=== PATIENT | female | born 1960 | race Caucasian/White ===

== ENCOUNTER 2018-06-17 17:12 | Emergency (ER) | payer MEDICAID, OTHER ==
[~2018-06-17] VITALS: Ht 165.1 cm; Wt 132.9 kg
[~2018-06-17 17:12] MED LIST: ALBU0.633 IH; AMLO5TAB4 PO; BECL8.7A5 IN; CALCIUM PO; CARB200T PO; CARI350T PO; CLON1TAB PO; CLOT15CR4; COMBIVENT RESPIMAT INH; DULO30CA2 PO; FEXO180T94 PO; FLUT1DIS3 IN; FLUT50DI IH; GLYCOPYRROLATE PO; HYDR4TAB4 PO; HYDROCORTIZONE CREAM TOP; IPRA0.2S9 IN; IPRATOPIUM IN; LEVO100T PO; LORA2TAB95 PO; MAGNESIUM PO; METH10TA PO; MIRT15TA PO; MONT10TA22 PO; MULT-1160 PO; OMEP40CA PO; ONDA4TAB5 PO; POLY17PO4; PRAM0.5T3 PO; TIOT18CA3 IH; TOPI50TA PO; ZINC PO; [UNRECOGNIZED DRUG - OTHER] TOP
[2018-06-17] MEDS ORDERED: HYDROMORPHONE INJ 2 MG/ML DISP.SYRIN IV ONE (17:30)
--- NOTE | 2018-06-17 17:34 | NUR ---
BIBRA AXOX4 C/O CP 08/27 NON RADIATING, -HIDALGO, NV, DIZZYNESS, SOB, PT ON O2 TRACH
[2018-06-17 17:48] LABS: BASOPHILS # (AUTO) 0.1 /CMM (0.0-0.2); BASOPHILS % (AUTO) 0.6 % (0.0-2.0); EOSINOPHILS % (AUTO) 2.4 % (0.0-6.0); HEMATOCRIT 32 % (33-45); HEMOGLOBIN 10.4 g/dL (11.5-14.8); LYMPHOCYTES # (AUTO) 1.8 /CMM (0.8-4.8); LYMPHOCYTES % (AUTO) 20.2 % (20.0-44.0); MEAN CORPUSCULAR HGB CONC 33 g/dl (31.0-36.0); MEAN CORPUSCULAR VOLUME 92 fL (82-100); MONOCYTES # (AUTO) 0.6 /CMM (0.1-1.30); MONOCYTES % (AUTO) 6.6 % (2.0-12.0); NEUTROPHILS # (AUTO) 6.2 /CMM (1.8-8.9); NEUTROPHILS % (AUTO) 70.2 % (43.0-81.0); PLATELET COUNT (AUTO) 290 /CMM (150-450); RED BLOOD CELL COUNT(AUTO) 3.45 MIL/uL (4.0-5.2); WHITE BLOOD COUNT (AUTO) 8.9 K/uL (4.3-11.0)
[2018-06-17 18:09] LABS: B-TYPE NATRIURETIC PEPTIDE 32 PG/ML (0-125); CALCIUM, SERUM 8.8 mg/dL (8.5-10.1); CARBON DIOXIDE 39 mmol/L (21-32); CHLORIDE 95 mmol/L (98-107); CREATININE 0.6 mg/dL (0.6-1.3); GLUCOSE 101 mg/dL (74-106); POTASSIUM 4.2 mmol/L (3.5-5.1); SODIUM SERUM 129 mmol/L (136-145); UREA NITROGEN, BLOOD 11 mg/dL (7-18)
[2018-06-17] MEDS ORDERED: HYDROMORPHONE 1 MG/1 ML DISP.SYRIN ONE (18:10)
--- NOTE | 2018-06-17 19:07 | NUR ---
URINE TAKEN VIA I&O CATH, PT DENIES PAIN ATTHIS TIME, STABLE
--- NOTE | 2018-06-17 19:22 | NUR ---
PT STABLE HANDOFF GIVEN TO ONCOMING MAIKEL MACE.
[2018-06-17 19:34] LABS: BILIRUBIN,URINE Negative (NEGATIVE); BLOOD, URINE Negative Ery/uL (NEGATIVE); KETONES,URINE Negative (NEGATIVE); LEUKOCYTE ESTERASE ,URINE Negative (NEGATIVE); NITRITE, URINE Positive (NEGATIVE); PH,URINE 7.5 (5.0-8.0); PROTEIN,URINE Trace mg/dl (NEGATIVE); UGLUCOSE 100 MG/DL mg/dL (NEGATIVE)
[2018-06-17 19:35] LABS: APPEARANCE,URINE SLIGHTLY HAZY (CLEAR); COLOR,URINE DARK YELLOW (YELLOW)
[2018-06-17 19:47] LABS: BACTERIA,URINE Many /HPF (None Seen); RBC,URINE 0-2 /HPF (0-2); SQUAMOUS EPITHELIAL CELL,UR Few /HPF (None Seen); WBC,URINE 0-2 /HPF (0-3)
--- NOTE | 2018-06-17 20:00 | NUR ---
SOUND ENGINEER BEDSIDE FOR BLOOD DRAW
[2018-06-17 21:18] VITALS: BP 118/61
== END 2018-06-17 21:20 | disposition home or self-care (01) ==
LOC: ER 17:17
DX: R07.89 Other chest pain (principal); J44.9 Chronic obstructive pulmonary disease, unspecified; M79.7 Fibromyalgia; I10 Essential (primary) hypertension; I25.2 Old myocardial infarction; K21.9 Gastro-esophageal reflux disease without esophagitis; F41.9 Anxiety disorder, unspecified; F32.9 Major depressive disorder, single episode, unspecified; M19.90 Unspecified osteoarthritis, unspecified site; Z93.0 Tracheostomy status; Z85.818 Personal history of malignant neoplasm of other sites of lip, oral cavity, and pharynx; Z90.49 Acquired absence of other specified parts of digestive tract; Z88.8 Allergy status to other drugs, medicaments and biological substances; Z79.899 Other long term (current) drug therapy
CPT/HCPCS: 36415; 71045-TC; 80048-TC; 81000-TC; 83880; 84484-TC; 85025-TC; 85378-TC; 87086-TC; 87186-TC; 93970-TC; J1170

== ENCOUNTER 2018-12-14 18:33 | Inpatient (IN) | payer MEDICAID ==
[~2018-12-14] VITALS: Ht 165.1 cm; Wt 129.3 kg
--- NOTE | 2018-12-14 18:50 | NUR ---
BIBA FOR C/O CP FOR THE PAST FEW HOURS. 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 NO VENT. NO N/V, VO DIZZINESS.
[2018-12-14 19:05] LABS: BASOPHILS % (AUTO) 0.5 % (0.0-2.0); EOSINOPHILS % (AUTO) 2.1 % (0.0-6.0); HEMATOCRIT 36 % (33-45); HEMOGLOBIN 11.8 g/dL (11.5-14.8); LYMPHOCYTES # (AUTO) 1.8 /CMM (0.8-4.8); LYMPHOCYTES % (AUTO) 19.8 % (20.0-44.0); MEAN CORPUSCULAR HGB CONC 33 g/dl (31.0-36.0); MEAN CORPUSCULAR VOLUME 87 fL (82-100); MONOCYTES # (AUTO) 0.7 /CMM (0.1-1.30); MONOCYTES % (AUTO) 7.3 % (2.0-12.0); NEUTROPHILS # (AUTO) 6.3 /CMM (1.8-8.9); NEUTROPHILS % (AUTO) 70.3 % (43.0-81.0); PLATELET COUNT (AUTO) 248 /CMM (150-450); RED BLOOD CELL COUNT(AUTO) 4.18 MIL/uL (4.0-5.2)
[2018-12-14 19:15] LABS: CALCIUM, SERUM 9.7 mg/dL (8.5-10.1); CARBON DIOXIDE 38 mmol/L (21-32); CHLORIDE 99 mmol/L (98-107); CREATININE 0.7 mg/dL (0.6-1.3); GLUCOSE 109 mg/dL (74-106); POTASSIUM 3.8 mmol/L (3.5-5.1); SODIUM SERUM 138 mmol/L (136-145); UREA NITROGEN, BLOOD 8 mg/dL (7-18)
[2018-12-14 19:21] LABS: ALANINE AMINOTRANSFERASE 62 U/L (12-78); ALBUMIN 3.3 g/dL (3.4-5.0); ALKALINE PHOSPHATASE 116 U/L (46-116); ASPARTATE AMINOTRANSFERASE 38 U/L (15-37); BILIRUBIN,DIRECT 0.1 mg/dL (0.0-0.2); BILIRUBIN,TOTAL 0.1 mg/dL (0.2-1.0); TOTAL PROTEIN, SERUM 7.9 g/dL (6.4-8.2)
--- NOTE | 2018-12-14 19:59 | NUR ---
TURNED IN MOVE SHEET, PRINTED CLINICALS FOR ADMITTING
[2018-12-14] MEDS ORDERED: HYDROMORPHONE INJ 2 MG/ML DISP.SYRIN IV ONE ×2 (20:30→22:00)
[2018-12-14] MEDS ORDERED: HYDROMORPHONE 1 MG/1 ML DISP.SYRIN ONE ×2 (20:34→21:52)
--- NOTE | 2018-12-14 20:34 | NUR ---
PAGED EPIC (DR BOYER)
--- NOTE | 2018-12-14 21:02 | NUR ---
BED ASSIGNMENT TELE 321-1
--- NOTE | 2018-12-14 21:15 | NUR ---
REPORT GIVEN TO DIGNA ON THIRD FLOOR
[2018-12-14] MEDS ORDERED: BECLOMETHASONE DIPROPIONATE 0.08 MG IN SCH (21:30)
[2018-12-14] MEDS ORDERED: ALBUTEROL SULFATE IH SCH (21:30)
[2018-12-14] MEDS ORDERED: POLYETHYLENE GLYCOL 3350 17 GM POWD.PACK PO SCH (21:30)
[2018-12-14] MEDS ORDERED: Z GUARD REMEDY 2 OZ OINT TP PRN (21:30)
[2018-12-14] MEDS ORDERED: ZOLPIDEM TARTRATE 5 MG TABLET PO PRN (21:30)
[2018-12-14] MEDS ORDERED: Medication Not On Formulary EA (Lorazepam (Ativan) 2 MG) PO SCH (21:30)
[2018-12-14] MEDS ORDERED: MAG HYDROX/AL HYDROX/SIMETH 30 ML UDC PO PRN (21:30)
[2018-12-14] MEDS ORDERED: clonazePAM 1 MG TABLET PO SCH (21:30)
[2018-12-14] MEDS ORDERED: ACETAMINOPHEN 325 MG TABLET PO PRN (21:30)
[2018-12-14] MEDS ORDERED: HYDROCORTIZONE TOP SCH (21:30)
[2018-12-14] MEDS ORDERED: Medication Not On Formulary EA (Ondansetron Hcl (Zofran) 4 MG) PO SCH (21:30)
[2018-12-14] MEDS ORDERED: MAGNESIUM HYDROXIDE 30 ML UDC PO PRN (21:30)
[2018-12-14] MEDS ORDERED: CLOTRIMAZOLE/BETAMETASONE DIPROPIONATE 15 GM TUBE TP SCH (21:30)
[2018-12-14] MEDS ORDERED: METHADONE HCL 10 MG TABLET PO SCH (21:30)
[2018-12-14] MEDS ORDERED: ASPIRIN 325 MG TABLET ONE (21:52)
[2018-12-14] MEDS ORDERED: ASPIRIN 325 MG TABLET PO ONE (22:00)
[2018-12-14] MEDS ORDERED: NITROGLYCERIN PACKET 1 GM PACKET TD ONE (22:00)
--- NOTE | 2018-12-14 22:24 | NUR ---
pt was tansferreed to 328-2 under acls in stable condition.
--- NOTE | 2018-12-14 22:35 | NUR ---
ADMISSION NOTE. PATIENT ADMITTED TO 328 BED 2 TELEMETRY FOR CHEST PAIN UNDER EPIC PROVIDER ROSALIND PEDRAZA. PATIENT IN ROOM IN NO APPARENT DISTRESS. REPORT SHE HAS SUBSTERNAL PAIN THAT IS ACHING IN HER CHEST. IT CURRENTLY IS NOT RADIATING AND SHE REPORTS IT 4/10 PAIN ON THE SCALE. PATIENT HAS HX OF LAYNGEAL CANCER AND HAS TRACH. SHE IS ON OXYGEN VIA C COLLAR AT 5LPM. SHE NOVA SOB. PATIENT ORIENTED TO ROOM. SAFETY MEASURES IN PLACE. SR X2 BED ALARM ACTIVE. BED DOWN AND LOCKED. NEW ORDERS RECIEVED.
[2018-12-14 23:00] VITALS: BP 158/91
[2018-12-14] MEDS ORDERED: FUROSEMIDE 20 MG/2 ML VIAL IV SCH (23:30)
[2018-12-14] MEDS ORDERED: ALBUTEROL SULFATE IH PRN (23:45)
[2018-12-14] MEDS ORDERED: BECLOMETHASONE DIPROPIONATE 0.08 MG INH PRN (23:45)
[2018-12-14] MEDS ORDERED: Medication Not On Formulary EA (Ondansetron Hcl (Zofran) 4 MG) PO PRN (23:45)
[2018-12-15] VITALS: BP 150/88
[2018-12-15] MEDS ORDERED: clonazePAM 1 MG TABLET PO PRN ×2 (00:30)
[2018-12-15] MEDS ORDERED: POLYETHYLENE GLYCOL 3350 17 GM POWD.PACK PO PRN (00:30)
[2018-12-15] MEDS: ONDANSETRON HCL/PF 4 MG/2 ML VIAL IVP PRN ×3 (00:40→20:01)
[2018-12-15] MEDS: MIRTAZAPINE 15 MG TABLET PO SCH ×2 (00:55→22:57)
[2018-12-15] MEDS ORDERED: CLOTRIMAZOLE/BETAMETASONE DIPROPIONATE 15 GM TUBE TP PRN (01:00)
[2018-12-15] MEDS ORDERED: HYDROMORPHONE HCL 2 MG TABLET PO PRN (01:00)
[2018-12-15] MEDS ORDERED: IPRATROPIUM IN SCH ×2 (01:00)
[2018-12-15] MEDS ORDERED: IPRATROPIUM IN PRN ×2 (01:00→02:30)
[2018-12-15] MEDS: HYDROMORPHONE HCL 2 MG TABLET PO PRN ×2 (01:15→20:34)
[2018-12-15] MEDS ORDERED: FUROSEMIDE 20 MG/2 ML VIAL IV ONE (01:30)
[2018-12-15] MEDS ORDERED: IPRATROPIUM NEB FS 0.5 MG/2.5 ML AMPUL.NEB NEB PRN (02:30)
--- NOTE | 2018-12-15 03:26 | NUR ---
RT NOTE PT COMFORTABLE WITH O2 LINE TO TRACH MASK. PT REFUSED COOL AEROSOL. Addendum: 12/15/18 at 0328 by ROGELIO MALAVE RT LATE ENTRY @2300 PT COMFORTABLE WITH O2 LINE TO TRACH MASK. PT REFUSED COOL AEROSOL.
[2018-12-15] MEDS: ALBUTEROL FS 2.5 MG/3 ML VIAL.NEB NEB PRN ×3 (03:47→22:13)
[2018-12-15] MEDS: IPRATROPIUM NEB FS 0.5 MG/2.5 ML AMPUL.NEB NEB PRN ×3 (03:47→22:13)
[2018-12-15 04:00] VITALS: BP 116/97
[2018-12-15] MEDS: CARISOPRODOL 350 MG TABLET PO SCH ×3 (04:32→21:31)
[2018-12-15] MEDS: LEVOTHYROXINE SODIUM 100 MCG TABLET PO SCH (06:18)
--- NOTE | 2018-12-15 06:20 | NUR ---
RN PM CLOSING NOTE. PATIENT SEEN IN BED IN NO APPARENT DISTRESS. PATIENT VOMITED RECENTLY 200 ML AND ZOFRAN WAS GIVEN. REVIEWED POC WITH PATIENT QUESTIONS CONCERNS ADDRESSED. WILL ENDORSE NEED FOR MD TO CLARIFY MED REC. PATIENT IS CONCERNED THAT METHADONE IS NOT SCHEDULED TO BE DELIVIERED. PATIENT ALSO REQUESTING POWDER FOR THE SMALL RASH UNDER HER BREASTS. WILL ENDORSE TO DAY SHIFT RN TO CLARIFY WITH MD DURING ROUNDS. BED DOWN. CALL LIGHT IN REACH VERBALZIED UNDERSTANDING TO CALL FOR ASSISTANCE NEEDED.
[2018-12-15 07:24] LABS: BASOPHILS % (AUTO) 0.3 % (0.0-2.0); HEMATOCRIT 37 % (33-45); HEMOGLOBIN 12.1 g/dL (11.5-14.8); LYMPHOCYTES # (AUTO) 2.1 /CMM (0.8-4.8); LYMPHOCYTES % (AUTO) 26.7 % (20.0-44.0); MEAN CORPUSCULAR HGB CONC 33 g/dl (31.0-36.0); MEAN CORPUSCULAR VOLUME 87 fL (82-100); MONOCYTES # (AUTO) 0.5 /CMM (0.1-1.30); MONOCYTES % (AUTO) 6.3 % (2.0-12.0); NEUTROPHILS % (AUTO) 63.7 % (43.0-81.0); PLATELET COUNT (AUTO) 241 /CMM (150-450); RED BLOOD CELL COUNT(AUTO) 4.29 MIL/uL (4.0-5.2); WHITE BLOOD COUNT (AUTO) 7.9 K/uL (4.3-11.0)
--- NOTE | 2018-12-15 07:47 | NUR ---
ELECTROMATIC TYPIST OPENING NOTE PATIENT IN BED RESTING COMFORTABLY. PATIENT IN NO ACUTE DISTRESS. PATIENT BREATHING IS EVEN AND UNLABORED. PATIENT TRACH IS PATENT AND INTACT. PATIENT IS ON OXYGEN VIA COLLAR 5L. PATIENT COMPLAINS OF CHEST PAIN 5/10 AT THIS TIME. PATIENT ON CARDIAC MONITORING, SINUS RHYTHM 89. PATIENT ABLE TO VERBALIZE NEEDS AND CONCERNS. NEEDS AND CONCERNS ADDRESSED. SAFETY PRECAUTIONS IN PLACE. PATIENT BED IS LOCKED AND IN LOWEST POSITION. CALL LIGHT WITHIN REACH. WILL CONTINUE TO MONITOR.
[2018-12-15 08:00] VITALS: BP 115/70
[2018-12-15 08:29] LABS: CALCIUM, SERUM 9.4 mg/dL (8.5-10.1); CREATININE 0.6 mg/dL (0.6-1.3); MAGNESIUM 1.3 mg/dL (1.8-2.4); PHOSPHORUS 3.2 mg/dL (2.5-4.9)
[2018-12-15] MEDS ORDERED: TIOTROPIUM BROMIDE 6 CAP/BOX CAP.W.DEV IH SCH (09:00)
[2018-12-15] MEDS ORDERED: DULOXETINE HCL 30 MG CAPSULE.DR PO SCH (09:00)
[2018-12-15] MEDS ORDERED: IPRATROPIUM NEB FS 0.5 MG/2.5 ML AMPUL.NEB IH SCH (09:00)
[2018-12-15] MEDS ORDERED: FLUTICASONE/SALMETEROL 1 DISK IH SCH (09:00)
[2018-12-15] MEDS: CARBAMAZEPINE 200 MG TABLET PO SCH ×4 (09:46→21:31)
[2018-12-15] MEDS: AMLODIPINE BESYLATE 5 MG TABLET PO SCH (09:47)
[2018-12-15] MEDS: MULTIVITAMINS,THERAGRAN 1 UDTAB TABLET PO SCH (09:47)
[2018-12-15] MEDS: MONTELUKAST SODIUM (10MG) 10 MG TABLET PO SCH ×2 (09:47→16:36)
[2018-12-15] MEDS: FLUTICASONE/VILANTEROL 1 EACH BLST.W.DEV IH SCH (09:48)
[2018-12-15] MEDS ORDERED: LORAZEPAM 1 MG TABLET PO PRN (11:30)
[2018-12-15] MEDS ORDERED: HYDROCORTISONE 2.5% CREAM 28.4 GM TUBE TP PRN (11:30)
[2018-12-15] MEDS: TOPIRAMATE 25 MG TABLET PO SCH ×2 (11:39→21:31)
[2018-12-15] MEDS: METHADONE HCL 10 MG TABLET PO SCH ×2 (11:40→16:36)
[2018-12-15] MEDS: PANTOPRAZOLE 40 MG TABLET.DR PO SCH (11:40)
[2018-12-15] MEDS: DULOXETINE HCL 30 MG CAPSULE.DR PO SCH ×2 (11:41→16:36)
[2018-12-15 12:00] VITALS: BP 127/95
[2018-12-15] MEDS: PRAMIPEXOLE DI-HCL 0.25 MG TABLET PO SCH ×2 (13:31→16:36)
[2018-12-15] MEDS: Magnesium 1GM/D5W 100ML PREMIX 100 ML IV SCH ×4 (13:31→17:56)
[2018-12-15] MEDS: GLYCOPYRROLATE 1 MG TABLET PO SCH ×2 (13:32→16:36)
[2018-12-15 15:30] VITALS: BP 142/70
[2018-12-15] MEDS ORDERED: VERAPAMIL HCL IV 5 MG/2 ML VIAL IV PRN (16:00)
[2018-12-15] MEDS ORDERED: NITROGLYCERIN 0.4 MG/TAB BOTTLE SL ONE (16:00)
[2018-12-15] MEDS ORDERED: IV NS 0.9% 500 ML IV PRN (16:00)
[2018-12-15] MEDS ORDERED: IOHEXOL-350 100 ML VIAL IV ONE (16:26)
[2018-12-15] MEDS ORDERED: CT SWABBABLE VALVE TRANS SET 1 EA INFUS.SET MC ONE (16:26)
[2018-12-15] MEDS ORDERED: IV NS 0.9% 250 ML IV ONE (16:26)
[2018-12-15] MEDS ORDERED: METOPROLOL TARTRATE INJ 5 MG/5 ML AMPUL ONE ×2 (16:26→17:08)
[2018-12-15] MEDS ORDERED: FEXOFENADINE HCL (60 MG) 60 MG TABLET PO PRN (17:00)
[2018-12-15] MEDS ORDERED: METOPROLOL TARTRATE INJ 5 MG/5 ML AMPUL IVP PRN (17:00)
[2018-12-15] MEDS ORDERED: SODIUM BICARBONATE 5 ML VIAL ONE (17:25)
[2018-12-15] MEDS ORDERED: NITROGLYCERIN 0.4 MG/TAB BOTTLE ONE (17:25)
--- NOTE | 2018-12-15 17:45 | NUR ---
MS RN NOTE JONATHAN KO WHOM DID THE CT ANGIOGRAPHY, STATED HE WILL SCAN NITROGLYCERIN 0.4 MG/ TAB BOTTLE IT WAS USED DURING THE SCAN WITH RADIOLOGY. PATIENT TOLERATED CT WELL. PATIENT IN NO ACUTE DISTRESS. WILL CONTINUE TO MONITOR.
--- NOTE | 2018-12-15 17:50 | NUR ---
RN NOTE 7046: Patient A/Ox4, aware for the CTA procedure. Verified with player piano technician re: Verapamil vs Metoprolol, per player piano technician and IR , ok for Metoprolol. player piano technician also called Dr. Burden and said ok to give Metoprolol for CTA procedure, MDs aware re: COPD asthma. Patietn is with trache to O2 collar at 6LPM via O2 tank sat 100%. See CTA flowsheet. 1283: CTA done, patient tolerated, received 7 doses of Metoprolol 5mg IVP and Nitro 0.4 SL. VSS, placed back to room via wheelchair, no significant changes noted. Informed primary RN for the meds given. Monitored for breathing, encouraged increase oral fluid intake.
--- NOTE | 2018-12-15 19:00 | NUR ---
MS RN CLOSING NOTE PATIENT IN BED RESTING COMFORTABLY. PATIENT IN NO ACUTE DISTRESS. PATIENT BREATHING IS EVEN AND UNLABORED. PATIENT TRACH IS PATENT AND INTACT. PATIENT IS ON OXYGEN VIA COLLAR 5L. PATIENT COMPLAINS OF NO CHEST PAIN AT THIS TIME. PATIENT ABLE TO VERBALIZE NEEDS AND CONCERNS. NEEDS AND CONCERNS ADDRESSED. ALL NURSING NEEDS MET. PATIENT KEPT CLEAN DRY AND COMFORTABLE THROUGHOUT SHIFT. SAFETY PRECAUTIONS IN PLACE. PATIENT BED IS LOCKED AND IN LOWEST POSITION. CALL LIGHT WITHIN REACH. WILL ENDORSE CARE TO PM SHIFT FOR WILLARD.
--- NOTE | 2018-12-15 19:30 | NUR ---
MS RN OPENING NOTES: RECEIVED PT WITH AT BEDSIDE AND IS EATING DINNER AT THIS TIME. PT IS ON TRACH COLLAR SHILEY 7 CUFFLESS AT 3LPM AND IS TOLERATING WELL. PT A/OX4. PT HAS IV ON R FOREARM #20 G AND R AC #20G. BOTH ARE PATENT AND INTACT AND H/L AT THIS TIME. BED KEPT IN LOW, LOCKED POSITION, AND SIDE RAILS X 2UP. WILL CONTINUE TO MONITOR PT.
[2018-12-15 20:00] VITALS: BP 114/78
--- NOTE | 2018-12-15 20:03 | NUR ---
MS RN NOTES: PT COMPLAINING OF NAUSEA. PT ADMINISTERED ZOFRAN MG IV. WILL CONTINUE TO MONITOR.
[2018-12-16] VITALS: BP 131/68
[2018-12-16] MEDS: HYDROCODONE/APAP 5/325MG 1 EACH TABLET PO PRN ×2 (00:17→11:04)
[2018-12-16 04:40] VITALS: BP 114/63
--- NOTE | 2018-12-16 04:43 | NUR ---
MS RN NOTES: PT COMPLAINING OF 10/10 CHEST PAIN. PT WAS ADMINISTERED DILAUDID 4MG PO. WILL CONTINUE TO MONITOR.
[2018-12-16] MEDS: CARISOPRODOL 350 MG TABLET PO SCH ×2 (06:01→13:48)
[2018-12-16] MEDS: LEVOTHYROXINE SODIUM 100 MCG TABLET PO SCH (06:01)
[2018-12-16] MEDS: IPRATROPIUM NEB FS 0.5 MG/2.5 ML AMPUL.NEB NEB PRN (06:01)
[2018-12-16] MEDS: ALBUTEROL FS 2.5 MG/3 ML VIAL.NEB NEB PRN (06:01)
[2018-12-16 07:23] LABS: CALCIUM, SERUM 8.7 mg/dL (8.5-10.1); CREATININE 0.6 mg/dL (0.6-1.3); MAGNESIUM 1.8 mg/dL (1.8-2.4); PHOSPHORUS 3.6 mg/dL (2.5-4.9); POTASSIUM 3.6 mmol/L (3.5-5.1)
--- NOTE | 2018-12-16 07:50 | NUR ---
MS RN CLOSING NOTES: ALL NEEDS WERE ATTENDED AND ANTICIPATED FOR. PT REMAINS ON TRACH COLLAR 4LPM VIA NC AND IS TOLERATING WELL. NO SOB NOTED. NO S/S OF DISTRESS. IVS ON R FOREARM AND R AC REMAINS INTACT. BOTH ARE H/L. PT SUCTIONED PRN. PAIN HAS BEEN MANAGED. PT ANTICIPATING TO GO HOME TODAY. BED KEPT IN LOW, LOCKED POSITION, AND SIDE RAILS X 2UP. ENDORSED TO AM NURSE FOR WILLARD.
[2018-12-16] MEDS: MULTIVITAMINS,THERAGRAN 1 UDTAB TABLET PO SCH (08:10)
[2018-12-16] MEDS: TOPIRAMATE 25 MG TABLET PO SCH (08:11)
[2018-12-16] MEDS: MONTELUKAST SODIUM (10MG) 10 MG TABLET PO SCH ×2 (08:12→17:10)
[2018-12-16] MEDS: DULOXETINE HCL 30 MG CAPSULE.DR PO SCH ×2 (08:13→17:10)
[2018-12-16] MEDS: PANTOPRAZOLE 40 MG TABLET.DR PO SCH (08:13)
[2018-12-16] MEDS: AMLODIPINE BESYLATE 5 MG TABLET PO SCH (08:15)
[2018-12-16] MEDS: CARBAMAZEPINE 200 MG TABLET PO SCH ×3 (08:15→17:11)
[2018-12-16] MEDS: GLYCOPYRROLATE 1 MG TABLET PO SCH ×3 (08:16→17:12)
[2018-12-16] MEDS: METHADONE HCL 10 MG TABLET PO SCH ×2 (08:17→17:11)
[2018-12-16] MEDS: FLUTICASONE/VILANTEROL 1 EACH BLST.W.DEV IH SCH (08:34)
[2018-12-16] MEDS: ONDANSETRON HCL/PF 4 MG/2 ML VIAL IVP PRN (08:42)
--- NOTE | 2018-12-16 08:43 | NUR ---
MS RN NOTE PT VOMITED A VERY SMALL AMOUNT AND COMPLAINING OF FEELING NAUSEOUS. CHARGE NURSE MADE AWARE AND ZOFRAN GIVEN. WILL CONT' TO MONITOR.
[2018-12-16] MEDS: PRAMIPEXOLE DI-HCL 0.25 MG TABLET PO SCH ×3 (10:25→17:12)
[2018-12-16] MEDS: HYDROMORPHONE HCL 2 MG TABLET PO PRN (13:48)
[2018-12-16] MEDS: NYSTATIN TOP POWDER 15 GM BOTTLE TP SCH ×2 (13:48→17:14)
[2018-12-16 15:46] VITALS: BP 165/77
--- NOTE | 2018-12-16 19:50 | NUR ---
MS/RN NOTES PT DISCHARGED FROM UNIT WITH VIA PRIVATE VEHICLE. ESCORTED DOWNSTAIRS BY INSIDE SALES ENGINEER VIA WHEELCHAIR WITH 1.5L OXYGEN TANK TO TRACH SITE FROM HOME. IV'S AND WRIST BANDS REMOVED. ALL BELONGINGS AND DISCHARGE PAPERWORK SENT WITH PATIENT.
[2018-12-17] MEDS ORDERED: FLUT1DIS5 IH (11:14)
[2018-12-17] MEDS ORDERED: IPRA4AER IH (11:14)
[2018-12-17] MEDS ORDERED: IPRA21SP BNOSTRILS (11:14)
[2018-12-17] MEDS ORDERED: TIZA4TAB5 PO (11:14)
[2018-12-17] MEDS ORDERED: IPRA3AMP23 IH (11:15)
[2018-12-17] MEDS ORDERED: FLUT16SP16 BNOSTRILS (11:15)
[2018-12-17] MEDS ORDERED: GLYC1TAB12 PO (11:15)
[2018-12-17] MEDS ORDERED: CHOL100044 PO (11:15)
[2018-12-17] MEDS ORDERED: BISA5TAB10 PO (11:15)
[2018-12-17] MEDS ORDERED: GLUC1TAB20 PO (11:18)
[2018-12-17] MEDS ORDERED: ESTR1PAT23 TD (11:21)
[2018-12-17] MEDS ORDERED: HYDR59LO5 TP (11:21)
[2018-12-17] MEDS ORDERED: CALC500T52 PO (11:22)
[2018-12-17] MEDS ORDERED: DOCU250C14 PO (11:27)
== END 2018-12-16 19:45 | disposition home or self-care (01) | DRG 203 ==
LOC: ER 18:39 → TELE 21:07 → MED 12-15 12:17
PROVIDERS: ADMIT Family Medicine; ATTEND Internal Medicine
DX: M94.0 Chondrocostal junction syndrome [Tietze] (principal); J96.10 Chronic respiratory failure, unspecified whether with hypoxia or hypercapnia; Z93.0 Tracheostomy status; E66.01 Morbid (severe) obesity due to excess calories; E44.1 Mild protein-calorie malnutrition; L30.4 Erythema intertrigo; Z68.42 Body mass index [BMI] 45.0-49.9, adult; I25.2 Old myocardial infarction; E88.09 Other disorders of plasma-protein metabolism, not elsewhere classified; I10 Essential (primary) hypertension; J44.9 Chronic obstructive pulmonary disease, unspecified; G47.30 Sleep apnea, unspecified; K21.9 Gastro-esophageal reflux disease without esophagitis; K58.9 Irritable bowel syndrome, unspecified; M19.90 Unspecified osteoarthritis, unspecified site; M79.7 Fibromyalgia; F41.9 Anxiety disorder, unspecified; F32.9 Major depressive disorder, single episode, unspecified; G40.909 Epilepsy, unspecified, not intractable, without status epilepticus; G89.4 Chronic pain syndrome; Z79.891 Long term (current) use of opiate analgesic; Z85.21 Personal history of malignant neoplasm of larynx
CPT/HCPCS: 31720; 36415; 71045-TC; 75574; 80048-TC; 80061-TC; 80076-TC; 83735-TC; 84100-TC; 84484-TC; 85025-TC; 87081-TC; 93307-TC; 94640-TC; 94799-TC; 97530-TC; A6253; A6403; G0378; J1170; J1940; J2405; J3475; J3490; J7040; J7050; Q9967

== ENCOUNTER 2018-12-17 10:28 | Inpatient (IN) | payer MEDICAID ==
[2018-12-17] MEDS ORDERED: IPRATROPIUM NEB FS 0.5 MG/2.5 ML AMPUL.NEB ONE (10:51)
[2018-12-17] MEDS ORDERED: ALBUTEROL FS 2.5 MG/3 ML VIAL.NEB ONE (10:51)
[2018-12-17] MEDS ORDERED: ALBUTEROL FS 2.5 MG/3 ML VIAL.NEB CONTNEB ONE (11:00)
[2018-12-17] MEDS ORDERED: IPRATROPIUM NEB FS 0.5 MG/2.5 ML AMPUL.NEB NEB ONE (11:00)
[2018-12-17] MEDS ORDERED: IPRA21SP BNOSTRILS (11:14)
[2018-12-17] MEDS ORDERED: IPRA4AER IH (11:14)
[2018-12-17] MEDS ORDERED: TIZA4TAB5 PO (11:14)
[2018-12-17] MEDS ORDERED: FLUT1DIS5 IH (11:14)
[2018-12-17] MEDS ORDERED: BISA5TAB10 PO (11:15)
[2018-12-17] MEDS ORDERED: FLUT16SP16 BNOSTRILS (11:15)
[2018-12-17] MEDS ORDERED: IPRA3AMP23 IH (11:15)
[2018-12-17] MEDS ORDERED: CHOL100044 PO (11:15)
[2018-12-17] MEDS ORDERED: GLYC1TAB12 PO (11:15)
[2018-12-17] MEDS ORDERED: GLUC1TAB20 PO (11:18)
[2018-12-17] MEDS ORDERED: ESTR1PAT23 TD (11:21)
[2018-12-17] MEDS ORDERED: HYDR59LO5 TP (11:21)
[2018-12-17] MEDS ORDERED: CALC500T52 PO (11:22)
[2018-12-17] MEDS ORDERED: DOCU250C14 PO (11:27)
[2018-12-17] MEDS ORDERED: ZOLPIDEM TARTRATE 5 MG TABLET PO PRN (12:00)
[2018-12-17] MEDS ORDERED: ESTRADIOL TD SCH (12:00)
[2018-12-17] MEDS ORDERED: BISACODYL (5 MG) 5 MG TABLET.DR PO PRN (12:00)
[2018-12-17] MEDS ORDERED: CARISOPRODOL 350 MG TABLET PO PRN (12:00)
[2018-12-17] MEDS ORDERED: clonazePAM 1 MG TABLET PO PRN (12:00)
[2018-12-17] MEDS ORDERED: Z GUARD REMEDY 2 OZ OINT TP PRN (12:00)
[2018-12-17] MEDS ORDERED: MAG HYDROX/AL HYDROX/SIMETH 30 ML UDC PO PRN (12:00)
[2018-12-17] MEDS ORDERED: HYDROCORTISONE 2.5% LOTION 59 ML BOTTLE TP PRN (12:00)
[2018-12-17] MEDS ORDERED: MAGNESIUM HYDROXIDE 30 ML UDC PO PRN (12:00)
[2018-12-17] MEDS ORDERED: HYDROCORTISONE 2.5% CREAM 28.4 GM TUBE TP PRN (12:30)
[2018-12-17] MEDS: GLYCOPYRROLATE 1 MG TABLET PO SCH ×2 (14:05→17:48)
[2018-12-17] MEDS: DULOXETINE HCL 30 MG CAPSULE.DR PO SCH ×2 (14:05→17:48)
[2018-12-17] MEDS: TIZANIDINE HCL 4 MG TABLET PO SCH ×2 (14:05→21:15)
[2018-12-17] MEDS: CARBAMAZEPINE 200 MG TABLET PO SCH ×3 (14:05→21:15)
[2018-12-17] MEDS: PRAMIPEXOLE DI-HCL 0.25 MG TABLET PO SCH ×2 (14:06→17:49)
[2018-12-17] MEDS: ENOXAPARIN SODIUM 40 MG/0.4 ML DISP.SYRIN SQ SCH (14:13)
[2018-12-17] MEDS: HYDROCODONE/APAP 5/325MG 1 EACH TABLET PO PRN ×2 (15:03→21:29)
[2018-12-17] MEDS ORDERED: METHADONE HCL 10 MG TABLET PO SCH (17:00)
[2018-12-17] MEDS ORDERED: CLOTRIMAZOLE/BETAMETASONE DIPROPIONATE 15 GM TUBE TP PRN (17:30)
[2018-12-17] MEDS: FUROSEMIDE 20 MG TABLET PO SCH (17:51)
[2018-12-17] MEDS ORDERED: IPRATROPIUM NEB FS 0.5 MG/2.5 ML AMPUL.NEB NEB SCH ×2 (18:00)
[2018-12-17] MEDS: METHADONE HCL 10 MG TABLET PO SCH (18:07)
[2018-12-17] MEDS: FLUTICASONE PROPIONATE 16 GM BOTTLE NS SCH ×2 (18:41→21:15)
[2018-12-17] MEDS: IPRATROPIUM NEB FS 0.5 MG/2.5 ML AMPUL.NEB NEB SCH ×2 (19:39→19:40)
[2018-12-17] MEDS: ALBUTEROL FS 2.5 MG/0.5 ML VIAL.NEB NEB SCH (19:39)
[2018-12-17] MEDS: IPRATROPIUM BROMIDE 0.06% 15 ML NASPR NS SCH (21:15)
[2018-12-17] MEDS: ONDANSETRON HCL/PF 4 MG/2 ML VIAL IVP PRN (22:44)
[2018-12-17] MEDS: LORAZEPAM 1 MG TABLET PO PRN (23:54)
[2018-12-18] MEDS: ALBUTEROL FS 2.5 MG/0.5 ML VIAL.NEB NEB SCH ×4 (02:08→19:56)
[2018-12-18] MEDS: IPRATROPIUM NEB FS 0.5 MG/2.5 ML AMPUL.NEB NEB SCH ×4 (02:08→19:56)
[2018-12-18] MEDS: TIZANIDINE HCL 4 MG TABLET PO SCH ×3 (04:33→21:12)
[2018-12-18] MEDS: HYDROMORPHONE HCL 2 MG TABLET PO PRN (04:39)
[2018-12-18] MEDS: ONDANSETRON HCL/PF 4 MG/2 ML VIAL IVP PRN ×2 (05:25→20:08)
[2018-12-18] MEDS: DULOXETINE HCL 30 MG CAPSULE.DR PO SCH ×3 (08:10→17:27)
[2018-12-18] MEDS: MONTELUKAST SODIUM (10MG) 10 MG TABLET PO SCH (08:11)
[2018-12-18] MEDS: METHADONE HCL 10 MG TABLET PO SCH ×3 (08:11→17:27)
[2018-12-18] MEDS: ACETAMINOPHEN 325 MG TABLET PO PRN (08:12)
[2018-12-18] MEDS: GLYCOPYRROLATE 1 MG TABLET PO SCH ×3 (08:12→17:26)
[2018-12-18] MEDS: PRAMIPEXOLE DI-HCL 0.25 MG TABLET PO SCH ×3 (08:12→17:27)
[2018-12-18] MEDS: LEVOTHYROXINE SODIUM 100 MCG TABLET PO SCH (08:12)
[2018-12-18] MEDS: FUROSEMIDE 20 MG TABLET PO SCH (08:12)
[2018-12-18] MEDS: FLUTICASONE/VILANTEROL 1 EACH BLST.W.DEV IH SCH (08:13)
[2018-12-18] MEDS: CARBAMAZEPINE 200 MG TABLET PO SCH ×4 (08:13→21:12)
[2018-12-18] MEDS: FLUTICASONE PROPIONATE 16 GM BOTTLE NS SCH ×2 (08:14→21:52)
[2018-12-18] MEDS: FEXOFENADINE HCL (60 MG) 60 MG TABLET PO SCH (08:14)
[2018-12-18] MEDS: IPRATROPIUM BROMIDE 0.06% 15 ML NASPR NS SCH ×4 (08:14→21:54)
[2018-12-18] MEDS: ENOXAPARIN SODIUM 40 MG/0.4 ML DISP.SYRIN SQ SCH (08:15)
[2018-12-18] MEDS ORDERED: K PHOS NEUTRAL 250 MG TABLET PO ONE (11:00)
[2018-12-18] MEDS: Magnesium 1GM/D5W 100ML PREMIX 100 ML IV SCH ×2 (11:54→13:35)
[2018-12-18] MEDS: HYDROCODONE/APAP 5/325MG 1 EACH TABLET PO PRN (20:08)
[2018-12-18] MEDS: LORAZEPAM 1 MG TABLET PO PRN (23:36)
[2018-12-19] MEDS: IPRATROPIUM NEB FS 0.5 MG/2.5 ML AMPUL.NEB NEB SCH ×3 (01:30→12:21)
[2018-12-19] MEDS: ALBUTEROL FS 2.5 MG/0.5 ML VIAL.NEB NEB SCH ×3 (01:30→12:22)
[2018-12-19] MEDS: HYDROMORPHONE HCL 2 MG TABLET PO PRN (02:41)
[2018-12-19] MEDS: TIZANIDINE HCL 4 MG TABLET PO SCH ×2 (05:57→13:21)
[2018-12-19] MEDS: LEVOTHYROXINE SODIUM 100 MCG TABLET PO SCH (07:23)
[2018-12-19] MEDS: HYDROCODONE/APAP 5/325MG 1 EACH TABLET PO PRN (07:24)
[2018-12-19] MEDS: ONDANSETRON HCL/PF 4 MG/2 ML VIAL IVP PRN ×2 (07:24→13:39)
[2018-12-19] MEDS: ACETAMINOPHEN 325 MG TABLET PO PRN (07:33)
[2018-12-19] MEDS: MONTELUKAST SODIUM (10MG) 10 MG TABLET PO SCH (08:59)
[2018-12-19] MEDS: CARBAMAZEPINE 200 MG TABLET PO SCH ×2 (08:59→13:21)
[2018-12-19] MEDS: FUROSEMIDE 20 MG TABLET PO SCH (08:59)
[2018-12-19] MEDS: DULOXETINE HCL 30 MG CAPSULE.DR PO SCH ×2 (08:59→13:21)
[2018-12-19] MEDS: GLYCOPYRROLATE 1 MG TABLET PO SCH ×2 (08:59→13:21)
[2018-12-19] MEDS: METHADONE HCL 10 MG TABLET PO SCH ×2 (08:59→13:22)
[2018-12-19] MEDS: PRAMIPEXOLE DI-HCL 0.25 MG TABLET PO SCH ×2 (09:00→13:21)
[2018-12-19] MEDS: FLUTICASONE/VILANTEROL 1 EACH BLST.W.DEV IH SCH (09:00)
[2018-12-19] MEDS: IPRATROPIUM BROMIDE 0.06% 15 ML NASPR NS SCH ×2 (09:06→13:00)
[2018-12-19] MEDS: FLUTICASONE PROPIONATE 16 GM BOTTLE NS SCH (09:06)
[2018-12-19] MEDS: ENOXAPARIN SODIUM 40 MG/0.4 ML DISP.SYRIN SQ SCH (09:10)
[2018-12-19] MEDS: FEXOFENADINE HCL (60 MG) 60 MG TABLET PO SCH (09:11)
[2018-12-19] MEDS: Magnesium 1GM/D5W 100ML PREMIX 100 ML IV SCH ×2 (11:22→13:45)
== END 2018-12-19 16:40 | disposition home or self-care (01) | DRG 133 ==
DX: J96.21 Acute and chronic respiratory failure with hypoxia (principal); J44.9 Chronic obstructive pulmonary disease, unspecified; Z93.0 Tracheostomy status; E66.01 Morbid (severe) obesity due to excess calories; T17.990A Other foreign object in respiratory tract, part unspecified in causing asphyxiation, initial encounter; G89.4 Chronic pain syndrome; I10 Essential (primary) hypertension; I25.2 Old myocardial infarction; K21.9 Gastro-esophageal reflux disease without esophagitis; M79.7 Fibromyalgia; F41.9 Anxiety disorder, unspecified; Z68.41 Body mass index [BMI] 40.0-44.9, adult; E78.5 Hyperlipidemia, unspecified; Z79.891 Long term (current) use of opiate analgesic; G40.909 Epilepsy, unspecified, not intractable, without status epilepticus; K58.9 Irritable bowel syndrome, unspecified; Z85.819 Personal history of malignant neoplasm of unspecified site of lip, oral cavity, and pharynx; X58.XXXA Exposure to other specified factors, initial encounter; Y93.9 Activity, unspecified; Y92.009 Unspecified place in unspecified non-institutional (private) residence as the place of occurrence of the external cause; J96.22 Acute and chronic respiratory failure with hypercapnia

== ENCOUNTER 2021-11-29 05:05 | Emergency (ER) | payer MEDICAID ==
[~2021-11-29] VITALS: Ht 170.2 cm; Wt 68.5 kg
[~2021-11-29 05:05] MED LIST changes: -ALBU0.633 IH; -AMLO5TAB4 PO; -BECL8.7A5 IN; +BISA5TAB10 PO; +CALC500T52 PO; -CALCIUM PO; +CHOL100044 PO; -COMBIVENT RESPIMAT INH; +DOCU250C14 PO; +ESTR1PAT23 TD; +FLUT16SP16 BNOSTRILS; -FLUT1DIS3 IN; +FLUT1DIS5 IH; -FLUT50DI IH; +GLUC1TAB20 PO; +GLYC1TAB12 PO; -GLYCOPYRROLATE PO; +HYDR59LO5 TP; -HYDROCORTIZONE CREAM TOP; -IPRA0.2S9 IN; +IPRA21SP BNOSTRILS; +IPRA3AMP23 IH; +IPRA4AER IH; -IPRATOPIUM IN; -MAGNESIUM PO; -MIRT15TA PO; -POLY17PO4; +TIZA4TAB5 PO; -TOPI50TA PO; -ZINC PO; -[UNRECOGNIZED DRUG - OTHER] TOP
--- NOTE | 2021-11-29 05:16 | NUR ---
PASCUAL 889 FROM HOME C/O URINARY RETENTION & PAIN. PT A/OX4. TRACH COLLAR INTACT. SATTING 97% ON 2LPM VIA N/C. SAFETY MEASURES IN PLACE. CONNECTED PT TO POX AND MONITOR.
--- NOTE | 2021-11-29 05:55 | NUR ---
Bladder scan completed 196 ml of urine. notified
--- NOTE | 2021-11-29 05:55 | NUR ---
urine collected and sent to lab
[2021-11-29 06:04] LABS: BILIRUBIN,URINE NEGATIVE (NEGATIVE); COLOR,URINE ORANGE (YELLOW); LEUKOCYTE ESTERASE ,URINE NEGATIVE (NEGATIVE); NITRITE, URINE POSITIVE (NEGATIVE); PROTEIN,URINE 30 mg/dl (NEGATIVE); UGLUCOSE 100 MG/DL mg/dL (NEGATIVE)
[2021-11-29] MEDS ORDERED: HYDROMORPHONE HCL 2 MG TABLET ONE (06:52)
--- NOTE | 2021-11-29 06:57 | NUR ---
TRAVEL ATTENDANTS AT PT'S BEDSIDE
[2021-11-29] MEDS ORDERED: HYDROMORPHONE HCL 2 MG TABLET PO PRN (07:00)
[2021-11-29 07:15] LABS: BASOPHILS % (AUTO) 0.1 % (0.0-2.0); EOSINOPHILS % (AUTO) 1.6 % (0.0-6.0); HEMATOCRIT 36 % (33-45); HEMOGLOBIN 11.5 g/dL (11.5-14.8); LYMPHOCYTES # (AUTO) 1.4 K/uL (0.8-4.8); MEAN CORPUSCULAR HGB CONC 32 g/dl (31.0-36.0); MEAN CORPUSCULAR VOLUME 92 fL (82-100); MONOCYTES # (AUTO) 0.4 K/uL (0.1-1.30); MONOCYTES % (AUTO) 6.3 % (2.0-12.0); NEUTROPHILS # (AUTO) 4.5 K/uL (1.8-8.9); PLATELET COUNT (AUTO) 223 K/uL (150-450); RED BLOOD CELL COUNT(AUTO) 3.89 MIL/uL (4.0-5.2); WHITE BLOOD COUNT (AUTO) 6.5 K/uL (4.3-11.0)
--- NOTE | 2021-11-29 07:20 | NUR ---
RECEIVED PT FROM YAEL KO PT ;EEPY RESPIRATION spont and easy no sob WTIH trach open to air fio2 2lnc
[2021-11-29 07:23] LABS: CALCIUM, SERUM 9.5 mg/dL (8.5-10.1); CREATININE 0.7 mg/dL (0.6-1.3); POTASSIUM 3.8 mmol/L (3.5-5.1)
--- NOTE | 2021-11-29 07:42 | NUR ---
MARK. MARSHALL AT BED SIDE
[2021-11-29 07:46] LABS: BACTERIA,URINE None seen /HPF (None Seen); RBC,URINE 0-2 /HPF (0-2); SQUAMOUS EPITHELIAL CELL,UR Rare /HPF (None Seen); WBC,URINE NONE SEEN /HPF (0-3)
--- NOTE | 2021-11-29 07:55 | NUR ---
DR. TANG NOTEY AND SEE REDNESS IN BOTH LOWER EXARMITY [place] PULSES PALPATPLE SKIM WARM AND DRY TO TOUCH
--- NOTE | 2021-11-29 08:15 | NUR ---
INSTRACTED TEACH HUSPAND OUT F/C CARE AND HOW TO EMPTY REFUSED TO CONECTED TO LEG BAG NOW FOR HERE SENSTIVITY OF SKIN REQUSTED TO LEVET WITH F/C BAG TO GRAVITY
--- NOTE | 2021-11-29 08:30 | NUR ---
D/C INSTRACTION AND FALLOW UP CARE GIVEN TO PT FULLY AND VERBLIZED UNDERSTOOD D/C HOME STABLE VS NO PAIN
[2021-11-29 08:40] VITALS: BP 121/77
== END 2021-11-29 08:41 | disposition home or self-care (01) ==
LOC: ER 05:12
DX: R33.9 Retention of urine, unspecified (principal); I10 Essential (primary) hypertension; I25.2 Old myocardial infarction; K21.9 Gastro-esophageal reflux disease without esophagitis; J44.9 Chronic obstructive pulmonary disease, unspecified; M19.90 Unspecified osteoarthritis, unspecified site; M79.7 Fibromyalgia; M81.0 Age-related osteoporosis without current pathological fracture; Z98.890 Other specified postprocedural states; Z90.49 Acquired absence of other specified parts of digestive tract; Z88.8 Allergy status to other drugs, medicaments and biological substances; Z79.899 Other long term (current) drug therapy
CPT/HCPCS: 36415; 80048-TC; 81001; 85025-TC; 87086-TC